=== PATIENT | male | born 1980 | race Two or more races ===

== ENCOUNTER 2016-04-11 01:19 | Emergency (ER) | payer BC ==
[~2016-04-11] VITALS: Ht 193 cm; Wt 167.8 kg
[2016-04-11] MEDS ORDERED: cloNIDine HCL 0.1 MG TAB ONE (01:27)
[2016-04-11] MEDS ORDERED: cloNIDine HCL 0.1 MG TAB PO ONE ×2 (01:30→12:00)
[2016-04-11 03:35] LABS: Basophils # (auto) 0.1 uL; Basophils % (auto) 0.4 % (0.0-2.0); DEFINITIVE VIEW TRANSMISSION; Eosinophils # (auto) 0.3 uL; Eosinophils % (auto) 2.5 % (0.0-7.0); Hematocrit 51.3 % (41.0-53.0); Hemoglobin 17.1 g/dL (13.5-17.5); Lymphocytes # (auto) 4.6 uL; Lymphocytes % (auto) 33.2 % (10.0-50.0); Mean Corpuscular Hemoglobin 28.4 pg (28.0-32.0); Mean Corpuscular Hgb Conc. 33.3 g/dL (32.0-36.0); Mean Corpuscular Volume 85.5 fL (80.0-100.0); Mean Platelet Volume 8.2 fL (7.4-10.4); Monocytes # (auto) 0.7 uL; Monocytes % (auto) 4.8 % (0.0-12.0); Neutrophils # (auto) 8.2 uL; Neutrophils % (auto) 59.1 % (37.0-80.0); Platelet Count (auto) 266 10^3/uL (140-450); Red Cell Distribution Width 13.2 % (11.6-16.0); White Blood Cell 13.9 10^3/uL (4.4-10.8)
[2016-04-11 03:50] LABS: INR 1.02 (0.9-1.15); Partial Thromboplastin Time 27.1 sec (22.64-33.71); Prothrombin Time 10.5 sec (9.37-12.3)
[2016-04-11 04:11] LABS: Albumin 3.5 g/dL (3.4-5.0); BUN/Creatinine Ratio 13.4; Calcium 8.8 mg/dL (8.5-10.1); Magnesium 2.1 mg/dL (1.6-2.6); Potassium 3.7 mmol/L (3.5-5.1)
[2016-04-11 04:14] LABS: Bilirubin, Total 0.5 mg/dL (0.2-1.0); Total Protein 7.9 g/dL (6.4-8.2)
[2016-04-11 04:17] LABS: B-Type Natriuretic Peptide 5.37 pg/mL (0-100)
[2016-04-11 04:18] LABS: Temperature: 21.9 C (20.0-25.0)
[2016-04-11] MEDS ORDERED: IOHEXOL 350 MG/ML 100ML IJ ONE (06:14)
[2016-04-11] MEDS ORDERED: diphenhdrAMINE HCL 50 MG/1 ML VL IV ONE (07:00)
[2016-04-11] MEDS ORDERED: methylPREDNISolone SOD SUCC 125 MG/2 ML VL IV ONE (07:00)
[2016-04-11 09:52] LABS: Urine RBC None Seen /hpf (0 - 3)
[2016-04-11 10:06] LABS: Urine Bilirubin Negative (Negative); Urine Blood Negative /uL (Negative); Urine Color Yellow (Yellow); Urine Glucose Normal (Normal); Urine Ketone Negative (Negative); Urine Mucus FEW (None Seen); Urine Nitrite Negative (Negative); Urine Squamous Epithelial Cell FEW /hpf (<5); Urine Urobilinogen Normal (Negative); Urine pH 5.5 (5.0-8.0)
[2016-04-11 13:00] VITALS: BP 155/85
== END 2016-04-11 13:05 | disposition home or self-care (01) ==
LOC: ER 01:24
DX: R06.09 Other forms of dyspnea (principal); I10 Essential (primary) hypertension; E11.65 Type 2 diabetes mellitus with hyperglycemia; E66.9 Obesity, unspecified; Z68.42 Body mass index [BMI] 45.0-49.9, adult; M79.89 Other specified soft tissue disorders; F17.210 Nicotine dependence, cigarettes, uncomplicated
CPT/HCPCS: 36415; 71020; 71275; 80053; 81001; 83735; 83880; 84484; 85025; 85049; 85379; 85610; 85730; 93005; 93971; 96374; 99285; J2930; Q9967

== ENCOUNTER 2019-06-14 12:53 | Inpatient (IN) | payer BC ==
[~2019-06-14] VITALS: Ht 190.5 cm; Wt 166.2 kg
[2019-06-14 13:33] LABS: Basophils # (auto) 0.1 10 ^3/uL (0-0.2); Eosinophils # (auto) 0.3 10 ^3/uL (0-0.8); Eosinophils % (auto) 2.1 % (0.0-7.0); Hematocrit 49.3 % (41.0-53.0); Hemoglobin 17.4 g/dL (13.5-17.5); Lymphocytes % (auto) 21.4 % (10.0-50.0); Mean Corpuscular Hemoglobin 30.4 pg (28.0-32.0); Mean Corpuscular Hgb Conc. 35.2 g/dL (32.0-36.0); Mean Corpuscular Volume 86.3 fL (80.0-100.0); Monocytes # (auto) 0.8 10 ^3/uL (0-1.3); Monocytes % (auto) 5.3 % (0.0-12.0); Neutrophils % (auto) 70.2 % (37.0-80.0); Nucleated Red Blood Cells % 0.1 %; Platelet Count (auto) 250 10^3/uL (140-450); Red Blood Cells 5.71 10^6/uL (4.5-5.90); Red Cell Distribution Width 13.5 % (11.8-14.3); White Blood Cell 14.2 10^3/uL (4.4-10.8)
[2019-06-14 13:46] LABS: Albumin 3.2 g/dL (3.4-5.0); Anion Gap 8 (5-15); Blood Urea Nitrogen 11 mg/dL (7-18); Calcium 8.9 mg/dL (8.5-10.1); Carbon Dioxide 30 mmol/L (21-32); Chloride 98 mmol/L (98-107); Glucose 301 mg/dL (74-106); Sodium 136 mmol/L (136-145)
[2019-06-14 13:55] LABS: Alanine Aminotransferase 31 U/L (16-61); Alkaline Phosphatase 126 U/L (45-117); Aspartate Aminotransferase 18 U/L (15-37); Bilirubin, Total 0.5 mg/dL (0.2-1.0); GFR African American 109 mL/min; GFR Non-African American 90 mL/min
[2019-06-14] MEDS ORDERED: ACETAMINOPHEN 325 MG TAB PO ONE ×2 (16:15)
[2019-06-14 16:48] LABS: INR 0.98 (0.9-1.15)
[2019-06-14] MEDS ORDERED: IOHEXOL 350 MG/ML 100ML IJ ONE (17:54)
[2019-06-14] MEDS ORDERED: ASPirin-EC 81 mg tab PO ONE (20:30)
[2019-06-14 20:56] LABS: Urine WBC None Seen /hpf (0 - 3)
[2019-06-14] MEDS ORDERED: DEXTROSE (50%) 50ML SYRG IV PRN (21:00)
[2019-06-14] MEDS ORDERED: ONDANSETRON HCL 4 MG/2 ML VIAL IV PRN (21:00)
[2019-06-14] MEDS ORDERED: TEMAZEPAM 15 MG CAP PO PRN (21:00)
[2019-06-14 21:32] LABS: Urine Bacteria NONE SEEN /hpf (None Seen); Urine Blood Negative /uL (Negative); Urine Mucus FEW (None Seen)
[2019-06-14 21:36] LABS: Urine Specific Gravity > 1.050 (1.001-1.035)
[2019-06-14] MEDS ORDERED: NITROGLYCERIN 0.4 MG SL TAB SL PRN (22:00)
[2019-06-14] MEDS ORDERED: ATORVASTATIN 20 MG TAB PO SCH (22:00)
[2019-06-14] MEDS ORDERED: MORPHINE SULF INJ 2 MG/ML SYRINGE 1ML IV PRN (22:00)
[2019-06-14] MEDS: ACCU-CHEK COMFORT CURVE STRIP VI SCH (22:06)
[2019-06-14 22:29] LABS: Cholesterol 172 mg/dL (< 200); HDL Cholesterol 36 mg/dL (40-59); LDL Cholesterol 92 mg/dL (< 100); Triglycerides 390 mg/dL (< 150)
[2019-06-14] MEDS: FAMOTIDINE 20 MG TAB PO SCH (22:40)
[2019-06-14] MEDS: InsuLIN REG 1unit/0.01ml Soln (100units/ml) SC SCH (22:41)
--- NOTE | 2019-06-14 23:07 | NUR ---
Admitted this 38 year old male client from ER. to room 216 [facility] with the chief complaint of substernal pressure-like non-radiating CP associated with dizziness and sob. Pt. Diagnosis is Chest Pain. Pt. arrived by hussain/rubio accompanied by ER personnel. Placed to bed in room 216 B arrived by 2307 PM. Pt. alert, awake, oriented x 4, coherent, compliant and follows command. Pt. speaks Danish and able to answer health questions. Pt. denies chest pain upon arrival to the unit. No s/s of N/V. Pt. on Room air with 02 st. of 97 %, started on Tele # 33 SR @ 70/s per minute. V/s taken by [employer] with temp. = 98.1 Deg. F. , HR = 71 , RR = 20 , BP = 150/80 and with 02 sat. of 97 % in Room Air. No s/s of sob or dyspnea. Chest expansion equal or symmetrical. Lungs are diminished to clear bilaterally. Breathing unlabored. Pt. denies pain @ this time. Trop. x 2 results today were all negative- see lab. results. Pt.'s weight = 168 kgs. per bedscale in bed B room 216. Generally skin intact. Pt. can turn self and adlib in bed. Pt. on bedrest with BRP. Pt. given orientation to the room/unit. Provided explanation about hospital policies such "no smoking policy", hospital rules and regulations, taking v/s routines, safety needs with the use of call-light @ the bedside, use of bed controls, TV control, telephone and location of the BR inside the room. 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
[2019-06-15] VITALS (7 sets, daily range): BP systolic 139–157; BP diastolic 73–98
--- NOTE | 2019-06-15 | NUR ---
Pt. SR @ 70's @ the Tele # 33. Pt. denies pain @ this time. Provided assistance with ADL's and bedside nsg. care.
--- NOTE | 2019-06-15 00:15 | NUR ---
Pt. on cardiac diet, pt. given midnight snacks such as sandwich, cracker and water @ the bedside. Pt. diabetic and last blood sugar result was taken @ the ER was 155. Pt. feeling hungry @ this time.
[2019-06-15] MEDS ORDERED: SITA50TA28 PO (01:43)
[2019-06-15] MEDS ORDERED: LISI40TA PO (01:43)
[2019-06-15] MEDS ORDERED: AMLO5TAB15 PO (01:43)
[2019-06-15] MEDS ORDERED: DULA0.5I SC (01:43)
[2019-06-15] MEDS ORDERED: LORA0.5T11 PO (01:43)
--- NOTE | 2019-06-15 02:00 | NUR ---
Pt. SR @ the monitor Tele # 33. No s/s of pain or discomfort @ this time. Pt. asleep.
--- NOTE | 2019-06-15 04:00 | NUR ---
No s/s of cute change. Sleeping and resting comfortably. SR @ the monitor.
[2019-06-15 05:52] LABS: Basophils # (auto) 0.1 10 ^3/uL (0-0.2); Basophils % (auto) 0.7 % (0.0-2.0); Eosinophils # (auto) 0.3 10 ^3/uL (0-0.8); Eosinophils % (auto) 2.7 % (0.0-7.0); Hematocrit 45.9 % (41.0-53.0); Hemoglobin 15.8 g/dL (13.5-17.5); Lymphocytes # (auto) 3.5 10 ^3/uL (0.4-5.4); Lymphocytes % (auto) 28.7 % (10.0-50.0); Mean Corpuscular Hgb Conc. 34.4 g/dL (32.0-36.0); Mean Corpuscular Volume 87.3 fL (80.0-100.0); Monocytes # (auto) 0.7 10 ^3/uL (0-1.3); Monocytes % (auto) 5.9 % (0.0-12.0); Neutrophils # (auto) 7.6 10 ^3/uL (1.6-8.6); Nucleated Red Blood Cells % 0.1 %; Platelet Count (auto) 221 10^3/uL (140-450); Red Blood Cells 5.26 10^6/uL (4.5-5.90); Red Cell Distribution Width 13.6 % (11.8-14.3); White Blood Cell 12.2 10^3/uL (4.4-10.8)
--- NOTE | 2019-06-15 06:00 | NUR ---
Pt. sleeping well. SR @ the monitor. Denies pain @ this time. Pt. PIV access @ the Left Lower FA discontinued/removed due to infiltration. RAC G # 20 PIV remained, patent and intact. Pt. given assistance and bedside nsg. care.
[2019-06-15 06:04] LABS: BUN/Creatinine Ratio 16.4; Calcium 8.4 mg/dL (8.5-10.1); Potassium 3.5 mmol/L (3.5-5.1)
[2019-06-15] MEDS: ACCU-CHEK COMFORT CURVE STRIP VI SCH ×4 (06:11→22:05)
--- NOTE | 2019-06-15 06:11 | NUR ---
Pt. accucheck taken with result of BS = 171 , pt. refused s/s coverage of Regular Human Insulin. Pt. assisted @ the bedside just newly awakened.
[2019-06-15] MEDS: InsuLIN REG 1unit/0.01ml Soln (100units/ml) SC SCH ×4 (06:22→22:00)
--- NOTE | 2019-06-15 07:00 | NUR ---
Gave report to the next Day Shift ANDRIA Torres. Pt. calm and resting in bed, awaiting his breakfast mealtray.
--- NOTE | 2019-06-15 07:30 | NUR ---
Opening Note Assumed patient care from NOC RNJanae
--- NOTE | 2019-06-15 10:00 | NUR ---
Echo at Bedside Echo at bedside.
[2019-06-15] MEDS ORDERED: OPTISON 3ml Vial for INJ IV ONE (10:26)
[2019-06-15] MEDS ORDERED: NICOTINE 14 MG/24HR TOPICAL PATCH TD ONE (10:30)
[2019-06-15] MEDS ORDERED: GIVE UN DILUTED IV STA (10:51)
[2019-06-15] MEDS ORDERED: ADENOSINE IV STA (10:51)
[2019-06-15] MEDS: FAMOTIDINE 20 MG TAB PO SCH ×2 (10:55→21:59)
[2019-06-15] MEDS: ASPirin 81 mg TAB PO SCH (10:55)
[2019-06-15] MEDS: LISINOPRIL 20 MG TAB PO SCH (10:56)
--- NOTE | 2019-06-15 11:30 | NUR ---
Off Unit Patient off unit for stress test.
[2019-06-15] MEDS ORDERED: amLODIPine BESYLATE 5 MG TAB PO ONE (12:15)
--- NOTE | 2019-06-15 12:46 | NUR ---
Patient Return Patient returned to unit via wheelchair, accompanied by staff. Patient is currently sitting up in bed, no signs of distress noted at this time, respirations even and unlabored. Safety precautions in place, will continue to monitor.
[2019-06-15] MEDS: ACETAMINOPHEN 325 MG TAB PO PRN ×2 (12:58→22:13)
--- NOTE | 2019-06-15 17:04 | NUR ---
Refused Med Patient refused insulin. Patient educated on risks. Patient verbalized understanding.
--- NOTE | 2019-06-15 18:00 | NUR ---
at bedside , Dr. Ordonez at bedside discussing plan of care with patient.
--- NOTE | 2019-06-15 19:20 | NUR ---
Closing Note Report given to DANNIE AYERS.
--- NOTE | 2019-06-15 19:21 | NUR ---
Received report from the Day ANDRIA Torres. Pt. in bed resting and watching TV.
--- NOTE | 2019-06-15 20:00 | NUR ---
Assessment done and completed. Pt. resting and sleeping. Arousable by name, in Room Air, breathing regular and unlabored. No s/s of pain or discomfort. Pt. SR @ the monitor.
--- NOTE | 2019-06-15 21:59 | NUR ---
Meds. as scheduled given. Pt. made aware of the actions and use of the scheduled meds. as ordered and per Pharm. verified. Pt. verbalized understanding.
[2019-06-15] MEDS ORDERED: ATORVASTATIN 20 MG TAB PO SCH (22:00)
--- NOTE | 2019-06-15 22:03 | NUR ---
Accucheck taken with result of BS = 166 , Pt. refused s/s coverage of Regular Human Insulin. Pt. verbalized " I do not use Insulin @ home". "No Insulin should be given to me."
--- NOTE | 2019-06-15 22:15 | NUR ---
Encouraged pt. to rest and given snacks and nourishment before sleeping as pt. requested.
[2019-06-16] MEDS ORDERED: SODIUM CHLORIDE 0.9% 1,000 ML IV SCH (00:01)
--- NOTE | 2019-06-16 00:30 | NUR ---
Pt. sleeping undisturbed. No s/s of sob. No s/s of pain or discomfort. SR @ the monitor.
--- NOTE | 2019-06-16 02:00 | NUR ---
Pt. able to ambulate without assist, with BRP. Returned to the bed safely.
--- NOTE | 2019-06-16 04:00 | NUR ---
Pt. sleeping undisturbed. No verbalization of pain @ this time. SR @ the monitor.
[2019-06-16 05:00] VITALS: BP 137/87
[2019-06-16 05:35] LABS: Basophils # (auto) 0.1 10 ^3/uL (0-0.2); Basophils % (auto) 0.6 % (0.0-2.0); Eosinophils # (auto) 0.3 10 ^3/uL (0-0.8); Eosinophils % (auto) 2.8 % (0.0-7.0); Hematocrit 47.4 % (41.0-53.0); Hemoglobin 16.7 g/dL (13.5-17.5); Lymphocytes # (auto) 3.2 10 ^3/uL (0.4-5.4); Lymphocytes % (auto) 25.7 % (10.0-50.0); Mean Corpuscular Hemoglobin 30.6 pg (28.0-32.0); Mean Corpuscular Hgb Conc. 35.1 g/dL (32.0-36.0); Mean Corpuscular Volume 87.2 fL (80.0-100.0); Monocytes # (auto) 0.7 10 ^3/uL (0-1.3); Monocytes % (auto) 5.3 % (0.0-12.0); Neutrophils # (auto) 8.2 10 ^3/uL (1.6-8.6); Neutrophils % (auto) 65.6 % (37.0-80.0); Nucleated Red Blood Cells % 0.1 %; Platelet Count (auto) 230 10^3/uL (140-450); Red Blood Cells 5.44 10^6/uL (4.5-5.90); Red Cell Distribution Width 13.4 % (11.8-14.3); White Blood Cell 12.5 10^3/uL (4.4-10.8)
[2019-06-16 05:54] LABS: Calcium 8.4 mg/dL (8.5-10.1); Potassium 3.4 mmol/L (3.5-5.1)
[2019-06-16 05:59] LABS: BUN/Creatinine Ratio 15.7
[2019-06-16] MEDS: InsuLIN REG 1unit/0.01ml Soln (100units/ml) SC SCH ×2 (06:17→11:30)
[2019-06-16] MEDS: ACCU-CHEK COMFORT CURVE STRIP VI SCH ×2 (06:17→11:30)
--- NOTE | 2019-06-16 06:17 | NUR ---
Pt. accucheck taken with result of BS = 167 , pt. refused coverage of regular human insulin.
--- NOTE | 2019-06-16 07:00 | NUR ---
Gave report to the next Day Shift ANDRIA Torres. Pt. resting in bed awaiting for breakfast.
--- NOTE | 2019-06-16 07:00 | NUR ---
Opening Note Received report from DANNIE AYERS.
[2019-06-16 08:00] VITALS: BP 154/98
--- NOTE | 2019-06-16 08:30 | NUR ---
Patient Rounds Patient states he has some shortness of breath. VS 98.1, HR83, RR18, SpO2 94% RA, 154/98. No signs of distress at this time, will continue to monitor.
[2019-06-16 09:00] VITALS: BP 154/98
--- NOTE | 2019-06-16 09:00 | NUR ---
Patient Rounds Patient denies shortness of breath at this time. Patient on RA. No signs of distress at this time, respirations even and unlabored, safety precautions in place, will continue to monitor.
[2019-06-16] MEDS: ASPirin 81 mg TAB PO SCH (09:52)
[2019-06-16] MEDS: FAMOTIDINE 20 MG TAB PO SCH (09:53)
[2019-06-16] MEDS: LISINOPRIL 20 MG TAB PO SCH (09:53)
[2019-06-16] MEDS ORDERED: amLODIPine BESYLATE 5 MG TAB PO SCH (10:00)
[2019-06-16] MEDS ORDERED: NICOTINE 14 MG/24HR TOPICAL PATCH TD SCH (10:00)
--- NOTE | 2019-06-16 11:50 | NUR ---
at bedside Dr. Amanda at bedside discussing plan of care with patient. Dr. Amanda to consult with geological aide.
[2019-06-16] MEDS ORDERED: POTASSIUM CHL 20 Meq TABLET PO ONE (12:00)
[2019-06-16 13:00] VITALS: BP 13/86
--- NOTE | 2019-06-16 13:00 | NUR ---
Cardio Consult Dr. Noble at bedside discussing plan of care with patient. Per Dr. Noble, patient has cardiac clearance for discharge. Patient verbalized understanding, all questions answered. No signs of distress at this time, respirations even and unlabored, will continue to monitor.
[2019-06-16 14:29] VITALS: BP 130/86
--- NOTE | 2019-06-16 16:30 | NUR ---
Discharge Discharge instructions given as ordered. Encourage to follow up with PMD as instructed. All questions and concerns addressed. Patient verbalized understanding. IV removed with catheter intact, pressure dressing applied. Telemetry unit returned to ICU. Patient ambulated to vehicle with all personal belongings, accompanied by staff and family member. No distress noted at time of departure.
== END 2019-06-16 16:30 | disposition home or self-care (01) | DRG 313 ==
LOC: ER 12:55 → TELE 12:56 → TELE-CENTR 23:07
PROVIDERS: ADMIT Nurse Practitioner; ATTEND Internal Medicine
DX: R07.89 Other chest pain (principal); Z68.42 Body mass index [BMI] 45.0-49.9, adult; E66.01 Morbid (severe) obesity due to excess calories; E78.1 Pure hyperglyceridemia; E78.5 Hyperlipidemia, unspecified; F17.210 Nicotine dependence, cigarettes, uncomplicated; F41.9 Anxiety disorder, unspecified; I10 Essential (primary) hypertension; I25.10 Atherosclerotic heart disease of native coronary artery without angina pectoris; K76.0 Fatty (change of) liver, not elsewhere classified; Z79.4 Long term (current) use of insulin; Z82.49 Family history of ischemic heart disease and other diseases of the circulatory system; Z83.3 Family history of diabetes mellitus; Z71.6 Tobacco abuse counseling; Z79.899 Other long term (current) drug therapy
CPT/HCPCS: 36415; 70450; 71046; 71275; 78452; 80048; 80053; 80061; 81001; 82962; 83036; 83735; 83880; 84443; 84484; 85025; 85379; 85610; 85730; 93005; 93017; 93306; 93886; G0378; J0153; J1815; Q9956

== ENCOUNTER 2020-05-11 19:24 | Emergency (ER) | payer BC ==
[~2020-05-11] VITALS: Ht 193 cm; Wt 174.6 kg
[~2020-05-11 19:24] MED LIST: AMLO-489 PO; DULA0.5I SC; LISI40TA11 PO; LORA0.5T19 PO; SITA50TA28 PO
[2020-05-11] MEDS ORDERED: SODIUM CHLORIDE 0.9% 1,000 ML IV ONE (21:30)
[2020-05-11] MEDS ORDERED: KETOROLAC TROMETH 60MG/2ML VIAL IM ONE (21:30)
[2020-05-11] MEDS ORDERED: CLINDAMYCIN 900MG IV 50 ML IV ONE (21:30)
[2020-05-12 01:08] LABS: Albumin 2.9 g/dL (3.4-5.0); Calcium 7.9 mg/dL (8.5-10.1); Potassium 3.3 mmol/L (3.5-5.1)
[2020-05-12 01:10] LABS: BUN/Creatinine Ratio 11.8
[2020-05-12 01:12] LABS: Basophils # (auto) 0.1 10 ^3/uL (0-0.2); Basophils % (auto) 0.5 % (0.0-2.0); Bilirubin, Total 0.4 mg/dL (0.2-1.0); Eosinophils # (auto) 0.2 10 ^3/uL (0-0.8); Eosinophils % (auto) 1.7 % (0.0-7.0); Hematocrit 42.3 % (41.0-53.0); Hemoglobin 14.6 g/dL (13.5-17.5); Lymphocytes # (auto) 2.4 10 ^3/uL (0.4-5.4); Lymphocytes % (auto) 22.3 % (10.0-50.0); Mean Corpuscular Hgb Conc. 34.6 g/dL (32.0-36.0); Mean Corpuscular Volume 86.6 fL (80.0-100.0); Monocytes # (auto) 0.8 10 ^3/uL (0-1.3); Neutrophils # (auto) 7.5 10 ^3/uL (1.6-8.6); Neutrophils % (auto) 68.5 % (37.0-80.0); Nucleated Red Blood Cells % 0.1 %; Platelet Count (auto) 229 10^3/uL (140-450); Red Blood Cells 4.88 10^6/uL (4.5-5.90); Red Cell Distribution Width 13.4 % (11.8-14.3); Total Protein 6.9 g/dL (6.4-8.2)
[2020-05-12] MEDS ORDERED: IOHEXOL 300 MG/ML 100ML BOTTLE IJ ONE (02:07)
[2020-05-12 03:50] VITALS: BP 148/74
== END 2020-05-12 03:59 | disposition home or self-care (01) ==
LOC: ER 19:24
DX: K05.6 Periodontal disease, unspecified (principal); K06.1 Gingival enlargement; F17.210 Nicotine dependence, cigarettes, uncomplicated; E11.9 Type 2 diabetes mellitus without complications; I10 Essential (primary) hypertension; E78.5 Hyperlipidemia, unspecified; Z79.899 Other long term (current) drug therapy
CPT/HCPCS: 36415; 70450; 70486; 70487; 70490; 80053; 85025; 96365; 96372; 99285; J1885; J3490; Q9967